=== PATIENT | female | born 1990 | race Two or more races ===

== ENCOUNTER 2022-10-03 07:51 | Inpatient (IN) | payer MEDICAID ==
[2022-10-01 11:55] LABS: Basophils # (auto) 0 10 ^3/uL (0-0.2); Basophils % (auto) 0.6 % (0.0-2.0); Eosinophils # (auto) 0.2 10 ^3/uL (0-0.8); Eosinophils % (auto) 3.6 % (0.0-7.0); Hematocrit 39.1 % (36.0-46.0); Hemoglobin 12.8 g/dL (12.2-16.2); Lymphocytes # (auto) 2.1 10 ^3/uL (0.4-5.4); Lymphocytes % (auto) 40.4 % (10.0-50.0); Mean Corpuscular Hemoglobin 28.6 pg (28.0-32.0); Mean Corpuscular Hgb Conc. 32.9 g/dL (32.0-36.0); Monocytes # (auto) 0.4 10 ^3/uL (0-1.3); Monocytes % (auto) 7.5 % (0.0-12.0); Neutrophils # (auto) 2.4 10 ^3/uL (1.6-8.6); Neutrophils % (auto) 47.9 % (37.0-80.0); Nucleated Red Blood Cells % 0.2 %; Red Blood Cells 4.49 10^6/uL (4.0-5.20); White Blood Cell 5.1 10^3/uL (4.4-10.8)
[2022-10-01 12:09] LABS: INR 0.93 (0.9-1.15); Partial Thromboplastin Time 28.3 sec (24.6-33.4)
[2022-10-01 12:19] LABS: Urine Bacteria NONE SEEN /hpf (None Seen); Urine Blood Negative /uL (Negative); Urine Specific Gravity 1.012 (1.001-1.035); Urine WBC <1 /hpf (0 - 5)
[2022-10-01 12:32] LABS: Albumin 3.8 g/dL (3.4-5.0); Calcium 8.4 mg/dL (8.5-10.1); Potassium 4.4 mmol/L (3.5-5.1)
[2022-10-01 12:38] LABS: BUN/Creatinine Ratio 16.2 (10.0-20.0); Bilirubin, Total 0.4 mg/dL (0.2-1.0); Total Protein 6.9 g/dL (6.4-8.2)
[~2022-10-03] VITALS: Ht 160 cm; Wt 76.5 kg
[2022-10-03] MEDS ORDERED: ceFAZolin 1GM/50ML 100 ML IV ONE (09:17)
[2022-10-03] MEDS ORDERED: ONDANSETRON HCL 4 MG/2 ML VIAL ONE (09:44)
[2022-10-03] MEDS ORDERED: GLYCOPYRROLATE 0.2 MG/ML 1ML VIAL ONE (09:44)
[2022-10-03] MEDS ORDERED: LIDOCAINE 2% (LOCAL ANESTH.) PF 5ml SDV ONE (09:44)
[2022-10-03] MEDS ORDERED: KETOROLAC TROMETH 30 MG/ML 1ML VIAL ONE (09:44)
[2022-10-03] MEDS ORDERED: DexAMETHasone SOD PHOS 10MG/1ML VIAL INJ ONE (09:45)
[2022-10-03] MEDS ORDERED: AUG875T PO ×2 (10:43→17:03)
[2022-10-03] MEDS ORDERED: HYDR-4902 PO ×2 (10:43→17:03)
[2022-10-03] MEDS ORDERED: BUPIVACAINE 0.25% INJ 50ML VIAL ONE (10:53)
[2022-10-03] MEDS ORDERED: ePHEDrine SULFATE 50 MG/ML AMP ONE (11:36)
[2022-10-03] MEDS ORDERED: SODIUM CHLORIDE LOCK 10 ML ONE (11:36)
[2022-10-03] MEDS ORDERED: NITROGLYCERIN 0.4 MG SL TAB SL PRN (13:45)
[2022-10-03] MEDS ORDERED: MORPHINE SULFATE INJ 2 MG/ml SYRG IV PRN (13:45)
[2022-10-03] MEDS: ceFAZolin 2 GM/D5W100ml 100 ML IV SCH ×2 (14:00→22:24)
[2022-10-03 15:38] VITALS: BP 110/63
[2022-10-03] MEDS ORDERED: ACETAMINOPHEN 500 MG TAB PO PRN (16:00)
[2022-10-03] MEDS ORDERED: ONDANSETRON HCL 4 MG/2 ML VIAL IV PRN (16:00)
[2022-10-03] MEDS ORDERED: traMADol HCL 50 MG TAB PO PRN (16:00)
[2022-10-03 16:36] VITALS: BP 116/60
[2022-10-03 20:00] VITALS: BP 94/55
[2022-10-03 22:00] VITALS: BP 94/55
[2022-10-04 05:00] VITALS: BP 97/57
[2022-10-04] MEDS: ceFAZolin 2 GM/D5W100ml 100 ML IV SCH ×2 (05:36→14:00)
[2022-10-04 05:59] LABS: Basophils # (auto) 0 10 ^3/uL (0-0.2); Basophils % (auto) 0.1 % (0.0-2.0); Eosinophils # (auto) 0 10 ^3/uL (0-0.8); Hematocrit 37.6 % (36.0-46.0); Hemoglobin 12.4 g/dL (12.2-16.2); Lymphocytes # (auto) 1.7 10 ^3/uL (0.4-5.4); Lymphocytes % (auto) 13.2 % (10.0-50.0); Mean Corpuscular Hemoglobin 28.8 pg (28.0-32.0); Mean Corpuscular Hgb Conc. 33.1 g/dL (32.0-36.0); Mean Corpuscular Volume 87.1 fL (80.0-100.0); Monocytes # (auto) 0.7 10 ^3/uL (0-1.3); Monocytes % (auto) 5.5 % (0.0-12.0); Neutrophils # (auto) 10.2 10 ^3/uL (1.6-8.6); Neutrophils % (auto) 81.2 % (37.0-80.0); Red Blood Cells 4.31 10^6/uL (4.0-5.20); White Blood Cell 12.5 10^3/uL (4.4-10.8)
[2022-10-04 06:00] LABS: BUN/Creatinine Ratio 15.2 (10.0-20.0); Calcium 8.2 mg/dL (8.5-10.1); Potassium 4.3 mmol/L (3.5-5.1)
[2022-10-04 08:00] VITALS: BP 101/63
[2022-10-04 09:00] VITALS: BP 154/57
[2022-10-04 09:06] VITALS: BP 101/63
[2022-10-04] MEDS ORDERED: HYDR-4902 PO (11:01)
[2022-10-04] MEDS ORDERED: AUG875T PO (11:01)
[2022-10-04 12:42] VITALS: BP 101/63
[2022-10-04 13:00] VITALS: BP 107/64
== END 2022-10-04 14:40 | disposition home or self-care (01) | DRG 314 ==
LOC: SUR 07:51 → OVERFLOW 13:40 → WEST WING 17:44
PROVIDERS: ADMIT Student in an Organized Health Care Education/Training Program; ATTEND Student in an Organized Health Care Education/Training Program
PROC: 0QBP0ZZ Excision of Left Metatarsal, Open Approach (ICD-10-PCS; principal; 2022-10-03 10:58)
PROC: 0L8W0ZZ Division of Left Foot Tendon, Open Approach (ICD-10-PCS; 2022-10-03 10:58)
DX: M20.12 Hallux valgus (acquired), left foot (principal); E78.5 Hyperlipidemia, unspecified; M20.42 Other hammer toe(s) (acquired), left foot; Z90.710 Acquired absence of both cervix and uterus; Z98.84 Bariatric surgery status; M21.612 Bunion of left foot
CPT/HCPCS: 36415; 73620; 76000; 80048; 80053; 81001; 84702; 85025; 85610; 85730; G0378; J0690; J1100; J1885; J2001; J2405; J3490